=== PATIENT | female | born 1970 | race Caucasian/White ===

== ENCOUNTER 2018-04-16 11:24 | Emergency (ER) | payer SELFPAY ==
[2018-04-16] MEDS ORDERED: MECLIZINE HCL 25 MG TABLET PO ONE (12:05)
[2018-04-16] MEDS ORDERED: NORMAL SALINE 1000 ML 1,000 ML IV ONE (12:05)
--- NOTE | 2018-04-16 12:06 | ER Document Report ---
ED Medical Screen (RME) - General Chief Complaint: Dizziness Stated Complaint: DIZZINESS Time Seen by Provider: 04/16/18 12:04 TRAVEL OUTSIDE OF THE [place] IN LAST 30 DAYS: No - HPI Notes: 04/16/18 12:05 Dizziness ongoing for a few days worse this morning. Also states blood pressure has been elevated. - Related Data Allergies/Adverse Reactions: No Known Allergies Allergy (Unverified 04/16/18 11:26) Past Medical History - Social History Frequency of alcohol use: None Drug Abuse: None Renal/ Medical History: Denies: Hx Peritoneal Dialysis Review of Systems - Review of Systems Constitutional: Other - dizziness Physical Exam - Vital signs Vitals: Temp Pulse Resp BP Pulse Ox 97.6 F 112 H 16 150/83 H 99 04/16/18 11:27 04/16/18 11:27 04/16/18 11:27 04/16/18 11:27 04/16/18 11:27 - HEENT Head: Normocephalic Eyes: Normal Conjunctiva: Normal Cornea: Normal - Cardiovascular Rhythm: Regular Heart sounds: Normal auscultation Course - Vital Signs Vital signs: Temp Pulse Resp BP Pulse Ox 97.6 F 112 H 16 150/83 H 99 04/16/18 11:27 04/16/18 11:27 04/16/18 11:27 04/16/18 11:27 04/16/18 11:27
--- NOTE | 2018-04-16 12:38 | ER Document Report ---
ED General - General Chief Complaint: Dizziness Stated Complaint: DIZZINESS Time Seen by Provider: 04/16/18 12:04 Notes: 47-year-old female presents to the ER complaining of multiple complaints. She complains of dizziness, chest discomfort, shortness of breath, high blood pressure. Stated that she has been under a lot of stress lately. States she woke up this morning and felt strange. States she felt as if her head was dizzy and lightheaded. She denies any room spinning stated that both her upper extremities felt a little tingling in her hands. States she has been under a lot of stress and anxious but does not really recall having a panic attack denies calf pain or leg swelling denies black bloody or tarry stools. Some mild chest discomfort which he describes as pressure. It is in the center of her chest nonradiating rated as mild. She denies abdominal pain. TRAVEL OUTSIDE OF THE [place] IN LAST 30 DAYS: No - Related Data Allergies/Adverse Reactions: No Known Allergies Allergy (Unverified 04/16/18 11:26) Past Medical History - Social History Smoking Status: Current Every Day Smoker Frequency of alcohol use: None Drug Abuse: None Family History: None Patient has suicidal ideation: No Patient has homicidal ideation: No Renal/ Medical History: Denies: Hx Peritoneal Dialysis Review of Systems - Review of Systems Cardiovascular: Chest pain, Palpitations, Dyspnea Respiratory: Short of breath Gastrointestinal: Nausea. denies: Diarrhea, Vomiting Neurological/Psychological: Anxiety, Headaches -: Yes All other systems reviewed and negative Physical Exam - Vital signs Vitals: Temp Pulse Resp BP Pulse Ox 97.6 F 112 H 16 150/83 H 99 04/16/18 11:27 04/16/18 11:27 04/16/18 11:27 04/16/18 11:27 04/16/18 11:27 - Notes Notes: GENERAL_APPEARANCE: well_nourished, alert, cooperative, no_acute_distress, no_ obvious_discomfort. VITALS: reviewed, see vital signs table. HEAD: no_swelling\tenderness on the head. EYES: PERRL, EOMI, conjunctiva_clear. NOSE: no_nasal_discharge. MOUTH: (-)decreased moisture. THROAT: no_throat_inflammation, no_airway_obstruction. no_lymphadenopathy NECK: supple, no_neck_tenderness, (-)thyromegaly. BACK: no_back_tenderness. CHEST_WALL: Left parasternal_chest_tenderness. No crepitus or subcutaneous emphysema LUNGS: no_wheezing, no_rales, no_rhonchi, (-)accessory muscle use, good air exchange bilateral. HEART: normal_rate, normal_rhythm, normal_S1, normal_S2, (-)S3, (-)S4, no_ murmur, no_rub. ABDOMEN: normal_BS, soft, no_abd_tenderness, (-)guarding, (-)rebound, no_ organomegaly, no_abd_masses. EXTREMITIES: good pulses in all_extremities, no_swelling\tenderness in the extremities, no_edema. SKIN: warm, dry, good_color, no_rash. MENTAL_STATUS: speech_clear, oriented_X_3, anxious_affect, responds_ appropriately to questions. NEURO: Neg Motor or Sensory Deficits on exam, CN 2-12 intact, DTR 2+ symmetric x 4, No cerbellar signs PSYCH: Seems anxious but denies suicidal or homicidal ideation denies denies visual auditory hallucinations Course - Re-evaluation Re-evalutation: 04/16/18 12:37 47-year-old female presents to the ER with dizziness very mild headache bilateral upper extremity numbness and tingling possibly anxiety hypertension. Chest discomfort. Rescanning the brain to look for any kind of space-occupying lesion EKG and lab work to assess for any kind of endorgan damage due to hypertension this may all be anxiety driven. She has no focal unilateral deficits. Due to monitor her vital signs. 04/16/18 14:22 EKG and enzymes are normal. CT scan is normal patient is feeling much better. Blood pressures come down but still mildly elevated will place her on some HCTZ for home. She is trying to establish primary care she has insurance start at the beginning of May. She has no neuro deficits. A lot of of her discomfort chest arizmendi musculoskeletal with hurts with movement hurts moving her left arm. There is no crepitus or subcu emphysema on my exam. My suspicion is low for ACS. Her heart score is less than 3. - Vital Signs Vital signs: Temp Pulse Resp BP Pulse Ox 97.6 F 112 H 16 150/83 H 99 04/16/18 11:27 04/16/18 11:27 04/16/18 11:27 04/16/18 11:27 04/16/18 11:27 - Laboratory Result Diagrams: 04/16/18 12:21 04/16/18 12:21 Laboratory results interpreted by me: 04/16/18 12:21 Urine Ascorbic Acid 20 H - Diagnostic Test Radiology reviewed: Reports reviewed Radiology results interpreted by me: 04/16/18 14:[address] 04/16/18 12:04 IMPRESSION: No acute intracranial hemorrhage or acute territorial infarct. Chest X-Ray 04/16/18 12:33 IMPRESSION: NO ACUTE RADIOGRAPHIC FINDING IN THE CHEST. - EKG Interpretation by Me EKG shows normal: Sinus rhythm Rate: Normal Rhythm: NSR When compared to previous EKG there are: No significant change Discharge - Discharge Clinical Impression: Chest discomfort Hypertension Qualifiers: Hypertension type: unspecified Qualified Code(s): I10 - Essential (primary) hypertension Condition: Good Disposition: HOME, SELF-CARE Instructions: High Blood Pressure, Requiring Treatment ([facility]) Additional Instructions: Try to establish primary care when your insurance coverage kicks in - keep a blood pressure diary so your medication can be adjusted Prescriptions: Hydrochlorothiazide 25 mg PO DAILY #30 tablet
[2018-04-16 12:40] LABS: ABSOLUTE EOSINOPHILS # (AUTO) 0.1 10^3/uL (0.0-0.6); ABSOLUTE LYMPHOCYTES (AUTO) 1.8 10^3/uL (0.5-4.7); ABSOLUTE MONOCYTES (AUTO) 0.5 10^3/uL (0.1-1.4); ABSOLUTE NEUT (AUTO) 6.3 10^3/uL (1.7-8.2); BASOPHILS % (AUTO) 0.3 % (0-2); EOSINOPHILS % (AUTO) 0.8 % (0-6); HEMATOCRIT 43.7 % (36.0-47.0); HEMOGLOBIN 15.2 g/dL (12.0-15.5); LYMPHOCYTES % (AUTO) 20.3 % (13-45); MEAN CORPUSCULAR HGB CONC 34.7 g/dL (32.0-36.0); MEAN CORPUSCULAR VOLUME 92 fl (80-97); MONOCYTES % (AUTO) 6.1 % (3-13); PLATELET COUNT 273 10^3/uL (150-450); RED BLOOD COUNT 4.74 10^6/uL (3.72-5.28); RED CELL DISTRIBUTION WIDTH 13.9 % (11.5-14.0); SEGMENTED NEUTROPHILS % (AUTO) 72.5 % (42-78); TOTAL CELLS COUNTED % (AUTO) 100 %; WHITE BLOOD COUNT 8.6 10^3/uL (4.0-10.5)
[2018-04-16 12:57] LABS: APPEARANCE,URINE CLEAR; BILIRUBIN,URINE NEGATIVE (NEGATIVE); COLOR,URINE YELLOW; GLUCOSE, URINE NEGATIVE (NEGATIVE); KETONES,URINE NEGATIVE (NEGATIVE); LEUKOCYTE ESTERASE,URINE NEGATIVE (NEGATIVE); NITRITE,URINE NEGATIVE (NEGATIVE); PROTEIN,URINE NEGATIVE (NEGATIVE); URINE SPECIFIC GRAVITY 1.009; UROBILINOGEN,URINE NEGATIVE mg/dL (<2.0)
[2018-04-16 13:05] LABS: URINE AMPHETAMINES SCREEN NEGATIVE; URINE BARBITURATES SCREEN NEGATIVE; URINE BENZODIAZEPINES SCREEN NEGATIVE; URINE COCAINE SCREEN NEGATIVE; URINE MARIJUANA (THC) SCREEN NEGATIVE; URINE METHADONE SCREEN NEGATIVE; URINE PHENCYCLIDINE SCREEN NEGATIVE
[2018-04-16 13:14] LABS: ALANINE AMINOTRANSFERASE 45 U/L (9-52); ALBUMIN 4.6 g/dL (3.5-5.0); ALKALINE PHOSPHATASE 84 U/L (38-126); ANION GAP 12 (5-19); ASPARTATE AMINO TRANSFERASE 29 U/L (14-36); BILIRUBIN,DIRECT 0.2 mg/dL (0.0-0.4); BILIRUBIN,TOTAL 0.4 mg/dL (0.2-1.3); BLOOD UREA NITROGEN 13 mg/dL (7-20); CALCIUM 9.6 mg/dL (8.4-10.2); CARBON DIOXIDE 26 mmol/L (22-30); CHLORIDE 107 mmol/L (98-107); GLUCOSE 84 mg/dL (75-110); LIPASE 72.4 U/L (23-300); SODIUM 144.6 mmol/L (137-145); TOTAL PROTEIN 7.7 g/dL (6.3-8.2)
--- NOTE | 2018-04-16 13:23 | RADIOLOGY REPORT (SQ) ---
EXAM DESCRIPTION: CT HEAD WITHOUT COMPLETED DATE/TIME: 04/16/2018 1:15 pm REASON FOR STUDY: dizziness COMPARISON: None. TECHNIQUE: Axial images acquired through the brain without intravenous contrast. Images reviewed wi th bone, brain and subdural windows. Images stored on PACS. All CT scanners at this facility use dose modulation, iterative reconstruction, and/or weight based d osing when appropriate to reduce radiation dose to as low as reasonably achievable (ALARA). [facility]: Dose Right [facility]: [employer] [facility]: Dose Right [facility]: Teradose 4D [facility]: [employer] RADIATION DOSE: CT Rad equipment meets quality standard of care and radiation dose reduction techniq ues were employed. CTDIvol: 53.2 mGy. DLP: 1017 mGy-cm. mGy. LIMITATIONS: None. FINDINGS: VENTRICLES: Normal size and contour. CEREBRUM: No mass effect. No hemorrhage. No midline shift. Normal rutherford/white matter differentiatio n. No evidence for acute territorial infarction. CEREBELLUM: No mass effect. No hemorrhage. No alteration of density. No evidence for acute infarct ion. EXTRAAXIAL SPACES: No fluid collections. ORBITS AND GLOBE: Symmetrical contour of the globes. CALVARIUM: No depressed skull fracture. PARANASAL SINUSES: No air-fluid level. SOFT TISSUES: No hematoma. IMPRESSION: No acute intracranial hemorrhage or acute territorial infarct. TECHNICAL DOCUMENTATION: JOB ID: [id number] [facility] [id number]: Final reports with documentation of one or more dose reduction techniques (e.g., Automate d exposure control, adjustment of the mA and/or kV according to patient size, use of iterative recons truction technique) 2010 [employer]- All Rights Reserved Reading location - IP/workstation name: [email or web address]
--- NOTE | 2018-04-16 13:39 | RADIOLOGY REPORT (SQ) ---
EXAM DESCRIPTION: CHEST SINGLE VIEW COMPLETED DATE/TIME: 04/16/2018 1:23 pm REASON FOR STUDY: cp COMPARISON: None. EXAM PARAMETERS: NUMBER OF VIEWS: One view. TECHNIQUE: Single frontal radiographic view of the chest acquired. RADIATION DOSE: NA LIMITATIONS: None. FINDINGS: LUNGS AND PLEURA: No opacities, masses or pneumothorax. No pleural effusion. MEDIASTINUM AND HILAR STRUCTURES: No masses. Contour normal. HEART AND VASCULAR STRUCTURES: Heart normal in size. Normal vasculature. BONES: No acute findings. HARDWARE: None in the chest. OTHER: No other significant finding. IMPRESSION: NO ACUTE RADIOGRAPHIC FINDING IN THE CHEST. TECHNICAL DOCUMENTATION: JOB ID: [id number] [employer]- All Rights Reserved Reading location - IP/workstation name: [email or web address]
--- NOTE | 2018-04-16 13:52 | EKG REPORT ---
SEVERITY:- NORMAL ECG - SINUS RHYTHM : Confirmed by: Dmitry Heller MD 16-Apr-2018 13:52:04
[2018-04-16 15:00] VITALS: BP 196/117
== END 2018-04-16 14:51 | disposition home or self-care (01) ==
LOC: ER 11:24
DX: R07.89 Other chest pain (principal); F17.200 Nicotine dependence, unspecified, uncomplicated; R42 Dizziness and giddiness; R09.89 Other specified symptoms and signs involving the circulatory and respiratory systems; R06.02 Shortness of breath; R20.2 Paresthesia of skin; R00.2 Palpitations; R11.0 Nausea; R51 Headache; I10 Essential (primary) hypertension
CPT/HCPCS: 93005; 99285; 36415; 83690; 84703; 85025; 80053; 81001; 84484; 80307; 71045; 70450; 93010; J7030